=== PATIENT | female | born 1985 | race Caucasian/White ===

== ENCOUNTER → 2017-09-26 | Outpatient (CLI) | payer BC ==
[~2017-09-26] MED LIST: BCP; Cheratussin AC118 ML PO; MULVITMIND PO; Percocet 5-3251 EACH PO
[2017-09-26 16:47] LABS: Specimen Source VAGINAL CYST
[2017-09-27 09:22] LABS: Source VAGINAL CYST
== END ==
LOC: LAB 12:12
PROVIDERS: Registered Nurse Community Health
DX: Z11.3 Encounter for screening for infections with a predominantly sexual mode of transmission (principal)
CPT/HCPCS: 87491; 87591

== ENCOUNTER → 2018-12-03 | Outpatient (CLI) | payer BC | LOC: LAB SHORT 13:10 → LAB EV 13:10 | DX: S40.851A Superficial foreign body of right upper arm, initial encounter (principal) | CPT/HCPCS: 87070; 87075; 87205 ==

== ENCOUNTER → 2020-06-30 | Outpatient (CLI) | payer BC ==
[2020-07-02 15:22] LABS: CORONAVIRUS (COVID19) CSH-NRL Negative (Negative)
== END ==
LOC: LAB SHORT 18:41 → LAB EV 18:41
PROVIDERS: Physician Assistant Medical
DX: R05 Cough (principal); Z20.828 Contact with and (suspected) exposure to other viral communicable diseases
CPT/HCPCS: U0003

== ENCOUNTER → 2022-06-14 | Outpatient (CLI) | payer BC ==
[2022-06-15 15:09] LABS: HPV 16 Negative (Negative); HPV 18 Negative (Negative); HPV OTHER HR TYPES Negative (Negative)
== END | disposition home or self-care (01) ==
LOC: LAB SHORT 14:34 → LAB 14:34
PROVIDERS: Advanced Practice Midwife
DX: Z01.419 Encounter for gynecological examination (general) (routine) without abnormal findings (principal)
CPT/HCPCS: 87624; G0123

== ENCOUNTER → 2022-07-06 | Outpatient (CLI) | payer BC | LOC: LAB SHORT 08:37 → LAB 08:37 | DX: L08.9 Local infection of the skin and subcutaneous tissue, unspecified (principal) | CPT/HCPCS: 87070; 87205 ==

== ENCOUNTER → 2022-12-06 | Outpatient (CLI) | payer BC | END | disposition home or self-care (01) | LOC: LAB SHORT 14:24 → LAB 14:24 | DX: O09.893 Supervision of other high risk pregnancies, third trimester (principal) | CPT/HCPCS: 87081; 87150 ==

== ENCOUNTER 2022-12-13 19:06 | Inpatient (IN) | payer BC ==
[~2022-12-13] VITALS: Ht 157.5 cm; Wt 75.4 kg
[2022-12-13] VITALS (14 sets, daily range): BP systolic 106–175; BP diastolic 73–102
[2022-12-13] MEDS ORDERED: PRENATAL TABLE1 EAC2 PO (19:57)
[2022-12-13 20:04] LABS: Creatinine, Urine Random 48.8 mg/dL (27.00-270.00); Protein, Urine Random 18.8 mg/dL (0.0-11.9); Protein/Creat Ratio, Ur Random 0.4
[2022-12-13 20:32] LABS: BASOPHILS ABSOLUTE AUTO 0.07 K/mm3 (0.00-0.23); BASOPHILS PERCENT AUTO 0 % (0-2); EOSINOPHILS ABSOLUTE AUTO 0.03 K/mm3 (0.00-0.68); EOSINOPHILS PERCENT AUTO 0 % (0-6); Hematocrit 43.1 % (33.0-51.0); Hemoglobin 14.8 g/dL (11.5-16.0); IMMATURE GRAN ABSOLUTE AUTO 0.07 K/mm3 (0.00-0.10); IMMATURE GRAN PERCENT AUTO 0 % (0-1); LYMPHOCYTES ABSOLUTE AUTO 2.15 K/mm3 (0.84-5.20); LYMPHOCYTES PERCENT AUTO 14 % (21-46); MONOCYTES ABSOLUTE AUTO 0.71 K/mm3 (0.16-1.47); MONOCYTES PERCENT AUTO 5 % (4-13); Mean Corpuscular HGB 31.4 pg (26.0-34.0); Mean Corpuscular HGB Conc 34.3 g/dL (31.5-36.5); Mean Corpuscular Volume 91 fL (80-100); Mean Platelet Volume 12.6 fL (9.1-12.4); NEUTROPHILS PERCENT AUTO 81 % (41-73); Platelet Count 220 K/mm3 (150-400); RDW Coefficient Variation 13.2 % (11.7-14.2); RDW Standard Deviation 44.6 fL (35.1-46.3); Red Blood Cell Count 4.72 M/mm3 (3.80-5.20); White Blood Cell Count 15.83 K/mm3 (4.00-11.30)
[2022-12-13 21:04] LABS: Albumin, Blood 2.5 g/dL (3.4-5.0); Albumin/Globulin Ratio 0.6 (0.8-1.8); Bilirubin, Total 0.6 mg/dL (0.1-1.0); Bun/Creatinine Ratio 10.1 (12.0-20.0); Calcium, Blood 8.9 mg/dL (8.5-10.1); Creatinine, Blood 0.69 mg/dL (0.40-1.00); Globulin, Blood 4.3 g/dL (2.2-4.0); Potassium, Blood 3.6 mmol/L (3.5-5.5); Total Protein, Blood 6.8 g/dL (6.4-8.2)
[2022-12-14] VITALS (76 sets, daily range): BP systolic 102–179; BP diastolic 55–94
[2022-12-14 01:26] LABS: International Normalized Ratio 0.88; Prothrombin Time Results 9.3 Sec (9.7-11.5)
[2022-12-14 16:10] LABS: Albumin, Blood 2.6 g/dL (3.4-5.0); Albumin/Globulin Ratio 0.6 (0.8-1.8); Bilirubin, Total 0.6 mg/dL (0.1-1.0); Bun/Creatinine Ratio 9.8 (12.0-20.0); Calcium, Blood 8.1 mg/dL (8.5-10.1); Creatinine, Blood 0.82 mg/dL (0.40-1.00); Globulin, Blood 4.5 g/dL (2.2-4.0); Magnesium, Blood 8.8 mg/dL (1.6-2.4); Potassium, Blood 3.9 mmol/L (3.5-5.5); Total Protein, Blood 7.1 g/dL (6.4-8.2)
[2022-12-14 23:29] LABS: Hematocrit 39.6 % (33.0-51.0); Hemoglobin 13.5 g/dL (11.5-16.0); Mean Corpuscular HGB 31.5 pg (26.0-34.0); Mean Corpuscular HGB Conc 34.1 g/dL (31.5-36.5); Mean Corpuscular Volume 92 fL (80-100); Mean Platelet Volume 12.3 fL (9.1-12.4); Platelet Count 213 K/mm3 (150-400); RDW Coefficient Variation 13.8 % (11.7-14.2); RDW Standard Deviation 46.3 fL (35.1-46.3); Red Blood Cell Count 4.29 M/mm3 (3.80-5.20)
[2022-12-14 23:51] LABS: White Blood Cell Count 21.01 K/mm3 (4.00-11.30)
[2022-12-14 23:53] LABS: BAND PERCENT MAN 3 % (0-8); BASOPHILS PERCENT MAN 0 % (0-2); EOSINOPHILS PERCENT MAN 0 % (0-6); LYMPHOCYTES ABSOLUTE MAN 1.68 K/mm3 (0.84-5.20); LYMPHOCYTES PERCENT MAN 8 % (21-46); MONOCYTES ABSOLUTE MAN 1.26 K/mm3 (0.16-1.47); MONOCYTES PERCENT MAN 6 % (4-13); NEUTROPHILS ABSOLUTE MAN 18.06 K/mm3 (1.96-9.15); SEG NEUTROPHILS PERCENT MAN 83 % (41-73); TOTAL CELLS COUNTED 100
[2022-12-14 23:57] LABS: Albumin, Blood 2.3 g/dL (3.4-5.0); Albumin/Globulin Ratio 0.6 (0.8-1.8); Bilirubin, Total 0.8 mg/dL (0.1-1.0); Bun/Creatinine Ratio 10.5 (12.0-20.0); Calcium, Blood 7.8 mg/dL (8.5-10.1); Creatinine, Blood 1.05 mg/dL (0.40-1.00); Magnesium, Blood 6.5 mg/dL (1.6-2.4); Total Protein, Blood 6.3 g/dL (6.4-8.2)
[2022-12-15] VITALS (75 sets, daily range): BP systolic 102–183; BP diastolic 56–123
[2022-12-15 02:13] LABS: Albumin, Blood 2.2 g/dL (3.4-5.0); Albumin/Globulin Ratio 0.6 (0.8-1.8); Bilirubin, Total 0.8 mg/dL (0.1-1.0); Bun/Creatinine Ratio 10.1 (12.0-20.0); Calcium, Blood 7.5 mg/dL (8.5-10.1); Creatinine, Blood 1.19 mg/dL (0.40-1.00); Globulin, Blood 3.8 g/dL (2.2-4.0); Magnesium, Blood 5.9 mg/dL (1.6-2.4); Potassium, Blood 3.9 mmol/L (3.5-5.5)
--- NOTE | 2022-12-15 05:33 | NUR ---
12/15/22 0533 Lanny Fuentes PT ENTERED OR WITH ANTHONY CATHETER
--- NOTE | 2022-12-15 07:31 | NUR ---
MAGSO4 OFF PER DR THOMPSON AT BEDSIDE, FF
--- NOTE | 2022-12-15 07:45 | NUR ---
lr off, pitocin with lr started at 250cc/hr, turned lr off so not to fluid overload pt.
--- NOTE | 2022-12-15 07:46 | NUR ---
LR OFF, PITOCIN STARTED AT 250CC/HR, PT STILL FELLS LIKE SHE IS BLEEING
--- NOTE | 2022-12-15 08:00 | NUR ---
DR THOMPSON AWARE OF QBL TOTAL + OR EBL, AWARE OF URINE OUTPUT, LABS DRAWN NOW, URINE OUTPUT UNDEER 30CC/HR.
--- NOTE | 2022-12-15 08:14 | NUR ---
DR THOMPSON AT BEDSIDE, HAS BEEN AT BEDSIDE MULTIPLE TIMES DURING DAYSHIFT, HAS REMAINED IN HOUSE AND CONSULTED WITH DR BRONSON.
[2022-12-15 08:17] LABS: BASOPHILS ABSOLUTE AUTO 0.07 K/mm3 (0.00-0.23); BASOPHILS PERCENT AUTO 0 % (0-2); EOSINOPHILS ABSOLUTE AUTO 0.07 K/mm3 (0.00-0.68); EOSINOPHILS PERCENT AUTO 0 % (0-6); Hematocrit 27.9 % (33.0-51.0); Hemoglobin 9.6 g/dL (11.5-16.0); IMMATURE GRAN ABSOLUTE AUTO 0.25 K/mm3 (0.00-0.10); IMMATURE GRAN PERCENT AUTO 1 % (0-1); LYMPHOCYTES ABSOLUTE AUTO 1.61 K/mm3 (0.84-5.20); LYMPHOCYTES PERCENT AUTO 5 % (21-46); MONOCYTES ABSOLUTE AUTO 1.48 K/mm3 (0.16-1.47); MONOCYTES PERCENT AUTO 5 % (4-13); Mean Corpuscular HGB 32.1 pg (26.0-34.0); Mean Corpuscular HGB Conc 34.4 g/dL (31.5-36.5); Mean Corpuscular Volume 93 fL (80-100); Mean Platelet Volume 12.8 fL (9.1-12.4); NEUTROPHILS ABSOLUTE AUTO 28.23 K/mm3 (1.96-9.15); NEUTROPHILS PERCENT AUTO 89 % (41-73); Platelet Count 261 K/mm3 (150-400); RDW Standard Deviation 46.9 fL (35.1-46.3); Red Blood Cell Count 2.99 M/mm3 (3.80-5.20); White Blood Cell Count 31.71 K/mm3 (4.00-11.30)
--- NOTE | 2022-12-15 08:27 | NUR ---
PT VERY CRAMPY AND PAINFUL, BABY CURRENTLY FEEDING, VERY GOOD LATCH AND SUCK,
[2022-12-15 08:31] LABS: International Normalized Ratio 0.92; Prothrombin Time Results 9.7 Sec (9.7-11.5)
[2022-12-15 08:34] LABS: Albumin, Blood 1.6 g/dL (3.4-5.0); Albumin/Globulin Ratio 0.5 (0.8-1.8); Bilirubin, Total 0.7 mg/dL (0.1-1.0); Bun/Creatinine Ratio 11.4 (12.0-20.0); Calcium, Blood 7.1 mg/dL (8.5-10.1); Creatinine, Blood 1.23 mg/dL (0.40-1.00); Globulin, Blood 3.1 g/dL (2.2-4.0); Magnesium, Blood 4.9 mg/dL (1.6-2.4); Potassium, Blood 4.1 mmol/L (3.5-5.5); Total Protein, Blood 4.7 g/dL (6.4-8.2)
--- NOTE | 2022-12-15 08:37 | NUR ---
DR BRONSON ASSUMED CARE, REQUEST ANTHONY BE FLUSHED,
--- NOTE | 2022-12-15 08:46 | NUR ---
DR BRONSON AT BEDSIDE, REVIEWED I&O, TALKED TO PT ABOUT PLAN OF CARE AND CONSULTS
--- NOTE | 2022-12-15 09:33 | NUR ---
URINE OUTPUT IN 50 MINUTES 32CC OF DARK JEFFRY COLORED URINE THAT IS CLEAR. PT IS SNORING AFTER THE 1 MG OF DILAUDID, FENTANYL YAM CURER IN HOOKED UP, EXPLAINED TO PT BEFORE GAVE DILAUDID THAT THE FENTNYL YAM CURER WOULD ONLY GIVE HER PAIN MEDS WHEN SHE PRESSED THE BUTTON, BUTTON AT BEDSIDE, TOOK BABY TO DESK SO MOM COULD SLEEP, VS STABLE, VAG BLEEDING HAS SLOWED DOWN TO SMALL TO SCAN, FF REMAINS FIRM AT [facility]. CONTININIOUS BIOX REMAINS ON.
--- NOTE | 2022-12-15 09:40 | NUR ---
from [id number] frequent fundal massage were done and all pads were weighted, no all fundal massages were documented, pt fundus as been firm at [facility] every massage, pt ls have remained clear during this time, pt compliants since i assumed care are pain and she has to stand up to void, pt is aware wont be standing for a while. currently still snoring, baby remains at the desk
--- NOTE | 2022-12-15 09:46 | NUR ---
first high blood pressure, pt is awake, she reports she was aware we took her baby to the desk and is ok withit, showed her the manager behavioral button and instructed how to use it and that is was different medication that what we have been giving her.
--- NOTE | 2022-12-15 10:10 | NUR ---
paged dr almodovar at 0948 and then again at 1000 due to 2 blood pressures being greater than [address] almodovar reports to give 20mg iv labetalol push, when back in room at 1008, the 1000 bp was 148 systolic. holding labetalol next bp due in 5 minutes and if greater than 160 systolic or 110 diastolic will give labetalol. pt is sleeping, new orders from dr almodovar to run ns at 50cc/hr with fentanyl heavy rail train operator
--- NOTE | 2022-12-15 10:15 | NUR ---
LABETALOL GIVEN FOR SYSTOLIC OF 162. DR LORENZO WALKED IN TO THE ROOM AT SAME TIME
--- NOTE | 2022-12-15 10:43 | NUR ---
NS WITH MOBILE APPLICATION ARCHITECT TO 100CC/HR PER DR DUEÑAS
--- NOTE | 2022-12-15 10:43 | NUR ---
PT SNORING/SLEEPING, BABY CONTINUES AT DESK
[2022-12-15 11:47] LABS: Source, Urine Foley catheter
--- NOTE | 2022-12-15 11:55 | NUR ---
PT LS CLEAR BILATERALLY, PT REALLY WANTS ANTHONY OUT AND TO GET OUT OF BED, PT IS AWARE THAT ANTHONY CANT COME OUT DUE TO URINE OUTPUT, BUT IF HER URINE OUTPUT IMPROVES MAYBE AND HER LABS ARE GOOD, MAYBE TONIGHT WE COULD STAND HER AT BEDSIDE, CONCERN IS HER BLOOD LOSS AND STANDING WITH HER BLOOD PRESSURE ISSUES.
--- NOTE | 2022-12-15 12:00 | NUR ---
dr almodovar called for update.
[2022-12-15 12:07] LABS: Appearance, Urine Clear (Clear); Bilirubin, Urine Neg (Neg); Blood, Urine 5+ (Neg); Color, Urine Amber (P-Yellow); Glucose Qualitative, Urine Neg (Neg); Ketones, Urine Neg (Neg); Leukocyte Esterase, Urine 2+ (Neg); Nitrite, Urine Neg (Neg); Protein, Urine 2+ (Neg); Specific Gravity, Urine 1.015 (1.003-1.022); Urobilinogen, Urine NORM (Normal)
[2022-12-15 12:24] LABS: BASOPHILS ABSOLUTE AUTO 0.07 K/mm3 (0.00-0.23); BASOPHILS PERCENT AUTO 0 % (0-2); EOSINOPHILS PERCENT AUTO 0 % (0-6); Hematocrit 25.4 % (33.0-51.0); Hemoglobin 8.6 g/dL (11.5-16.0); IMMATURE GRAN ABSOLUTE AUTO 0.28 K/mm3 (0.00-0.10); IMMATURE GRAN PERCENT AUTO 1 % (0-1); LYMPHOCYTES ABSOLUTE AUTO 1.48 K/mm3 (0.84-5.20); LYMPHOCYTES PERCENT AUTO 4 % (21-46); MONOCYTES ABSOLUTE AUTO 1.62 K/mm3 (0.16-1.47); MONOCYTES PERCENT AUTO 4 % (4-13); Mean Corpuscular HGB 32.3 pg (26.0-34.0); Mean Corpuscular HGB Conc 33.9 g/dL (31.5-36.5); Mean Corpuscular Volume 96 fL (80-100); Mean Platelet Volume 12.6 fL (9.1-12.4); NEUTROPHILS ABSOLUTE AUTO 34.47 K/mm3 (1.96-9.15); NEUTROPHILS PERCENT AUTO 91 % (41-73); Platelet Count 244 K/mm3 (150-400); RDW Coefficient Variation 13.8 % (11.7-14.2); Red Blood Cell Count 2.66 M/mm3 (3.80-5.20); White Blood Cell Count 37.92 K/mm3 (4.00-11.30)
[2022-12-15 12:40] LABS: Microalb/Creat Ratio UR, Rand 61.053 mg/g (0.000-30.000); Microalbumin, Random Urine 69.6 mg/L (0.000-20.000)
[2022-12-15 12:49] LABS: Albumin, Blood 1.6 g/dL (3.4-5.0); Albumin/Globulin Ratio 0.5 (0.8-1.8); Bilirubin, Total 0.7 mg/dL (0.1-1.0); Bun/Creatinine Ratio 11.9 (12.0-20.0); Creatinine, Blood 1.18 mg/dL (0.40-1.00); Potassium, Blood 4.4 mmol/L (3.5-5.5); Total Protein, Blood 4.6 g/dL (6.4-8.2)
[2022-12-15 12:51] LABS: Bacteria Rare /hpf; Mucus Light (0-Heavy); Squamous Epithelial Cells Few /hpf (Few)
[2022-12-15 13:52] LABS: International Normalized Ratio 0.93; Prothrombin Time Results 9.8 Sec (9.7-11.5)
--- NOTE | 2022-12-15 15:05 | NUR ---
dr almodovar called for update, new orders for 1600 cbc and cmp, she is reaching out to dr tucker about pt wbc's
[2022-12-15 16:06] LABS: BASOPHILS ABSOLUTE AUTO 0.05 K/mm3 (0.00-0.23); BASOPHILS PERCENT AUTO 0 % (0-2); EOSINOPHILS PERCENT AUTO 0 % (0-6); Hematocrit 22.3 % (33.0-51.0); Hemoglobin 7.6 g/dL (11.5-16.0); IMMATURE GRAN ABSOLUTE AUTO 0.31 K/mm3 (0.00-0.10); IMMATURE GRAN PERCENT AUTO 1 % (0-1); LYMPHOCYTES ABSOLUTE AUTO 1.84 K/mm3 (0.84-5.20); LYMPHOCYTES PERCENT AUTO 5 % (21-46); MONOCYTES ABSOLUTE AUTO 1.61 K/mm3 (0.16-1.47); MONOCYTES PERCENT AUTO 4 % (4-13); Mean Corpuscular HGB 32.1 pg (26.0-34.0); Mean Corpuscular HGB Conc 34.1 g/dL (31.5-36.5); Mean Corpuscular Volume 94 fL (80-100); Mean Platelet Volume 12.4 fL (9.1-12.4); NEUTROPHILS ABSOLUTE AUTO 36.54 K/mm3 (1.96-9.15); NEUTROPHILS PERCENT AUTO 91 % (41-73); Platelet Count 251 K/mm3 (150-400); RDW Coefficient Variation 13.8 % (11.7-14.2); RDW Standard Deviation 46.5 fL (35.1-46.3); Red Blood Cell Count 2.37 M/mm3 (3.80-5.20); White Blood Cell Count 40.35 K/mm3 (4.00-11.30)
[2022-12-15 16:45] LABS: Albumin, Blood 1.6 g/dL (3.4-5.0); Albumin/Globulin Ratio 0.6 (0.8-1.8); Bilirubin, Total 0.6 mg/dL (0.1-1.0); Bun/Creatinine Ratio 11.7 (12.0-20.0); Creatinine, Blood 1.28 mg/dL (0.40-1.00); Globulin, Blood 2.9 g/dL (2.2-4.0); Potassium, Blood 4.4 mmol/L (3.5-5.5); Total Protein, Blood 4.5 g/dL (6.4-8.2)
--- NOTE | 2022-12-15 17:39 | NUR ---
dr almodovar called for update, to give 1 unit of blood, will call back with further orders
--- NOTE | 2022-12-15 17:42 | NUR ---
pt educated on getting one unit of blood, pt is agree able to getting the blood
--- NOTE | 2022-12-15 18:25 | NUR ---
DR BRONSON AT BEDSIDE ASSESSING PT NEW ORDERS TO DO LABS CBC/CMP Q 6 HOURS INSTEAD OF Q 4 HOURS
--- NOTE | 2022-12-15 18:40 | NUR ---
PT DENIES ANY DIFFICULTY BREATHING OR FEELING DIFFERENT FROM TRANSFUSION AT THIS TIME
--- NOTE | 2022-12-15 19:15 | NUR ---
RN CALL TO TO UPDATE ON 2 SEVERE RANGE BPs 15 MIN APART. NO ORDERS RECEIVED AT THIS TIME. RN TO CONTINUE MONITORING BP.
--- NOTE | 2022-12-15 20:55 | NUR ---
CALL TO TO CLARIFY BLOOD TRANSFUSION ORDERS. RN TO TRANSFUSE 1 TOTAL UNIT OF PRBC. UPDATED ON PT'S CURRENT VS/BPs. RN TO CALL BACK IF BPs CONSISTENTLY IN SEVERE RANGE, NO FURTHER ORDERS AT THIS TIME.
--- NOTE | 2022-12-15 21:27 | NUR ---
UPDATE TO OF 2 SEVERE RANGE BPs. ORDERS RECEIVED FOR A 1 TIME DOSE OF 200MG LABETALOL PO NOW.
[2022-12-15 23:32] LABS: Hematocrit 27.2 % (33.0-51.0); Hemoglobin 9.4 g/dL (11.5-16.0); Mean Corpuscular HGB 31.1 pg (26.0-34.0); Mean Corpuscular HGB Conc 34.6 g/dL (31.5-36.5); Mean Corpuscular Volume 90 fL (80-100); Mean Platelet Volume 12.6 fL (9.1-12.4); Platelet Count 235 K/mm3 (150-400); RDW Coefficient Variation 15.2 % (11.7-14.2); RDW Standard Deviation 49.8 fL (35.1-46.3); Red Blood Cell Count 3.02 M/mm3 (3.80-5.20); White Blood Cell Count 35.06 K/mm3 (4.00-11.30)
[2022-12-15 23:51] LABS: Albumin, Blood 1.7 g/dL (3.4-5.0); Albumin/Globulin Ratio 0.5 (0.8-1.8); Bilirubin, Total 0.9 mg/dL (0.1-1.0); Bun/Creatinine Ratio 13.4 (12.0-20.0); Calcium, Blood 7.4 mg/dL (8.5-10.1); Creatinine, Blood 1.12 mg/dL (0.40-1.00); Globulin, Blood 3.3 g/dL (2.2-4.0); Potassium, Blood 4.4 mmol/L (3.5-5.5)
[2022-12-16] VITALS (11 sets, daily range): BP systolic 103–155; BP diastolic 53–80
[2022-12-16 00:02] LABS: BAND PERCENT MAN 2 % (0-8); BASOPHILS PERCENT MAN 0 % (0-2); EOSINOPHILS PERCENT MAN 0 % (0-6); LYMPHOCYTES PERCENT MAN 6 % (21-46); MONOCYTES PERCENT MAN 6 % (4-13); NEUTROPHILS ABSOLUTE MAN 30.85 K/mm3 (1.96-9.15); SEG NEUTROPHILS PERCENT MAN 86 % (41-73); TOTAL CELLS COUNTED 100
[2022-12-16 04:29] LABS: BASOPHILS ABSOLUTE AUTO 0.04 K/mm3 (0.00-0.23); BASOPHILS PERCENT AUTO 0 % (0-2); EOSINOPHILS PERCENT AUTO 0 % (0-6); Hematocrit 23.2 % (33.0-51.0); Hemoglobin 8.1 g/dL (11.5-16.0); IMMATURE GRAN ABSOLUTE AUTO 0.13 K/mm3 (0.00-0.10); IMMATURE GRAN PERCENT AUTO 1 % (0-1); LYMPHOCYTES ABSOLUTE AUTO 1.92 K/mm3 (0.84-5.20); LYMPHOCYTES PERCENT AUTO 8 % (21-46); MONOCYTES ABSOLUTE AUTO 1.26 K/mm3 (0.16-1.47); MONOCYTES PERCENT AUTO 5 % (4-13); Mean Corpuscular HGB 31.3 pg (26.0-34.0); Mean Corpuscular HGB Conc 34.9 g/dL (31.5-36.5); Mean Corpuscular Volume 90 fL (80-100); Mean Platelet Volume 12.4 fL (9.1-12.4); NEUTROPHILS ABSOLUTE AUTO 20.99 K/mm3 (1.96-9.15); NEUTROPHILS PERCENT AUTO 86 % (41-73); Platelet Count 204 K/mm3 (150-400); RDW Coefficient Variation 15.4 % (11.7-14.2); RDW Standard Deviation 49.5 fL (35.1-46.3); Red Blood Cell Count 2.59 M/mm3 (3.80-5.20); White Blood Cell Count 24.34 K/mm3 (4.00-11.30)
[2022-12-16 04:47] LABS: Albumin, Blood 1.6 g/dL (3.4-5.0); Albumin/Globulin Ratio 0.5 (0.8-1.8); Bilirubin, Total 0.5 mg/dL (0.1-1.0); Bun/Creatinine Ratio 13.6 (12.0-20.0); Calcium, Blood 7.4 mg/dL (8.5-10.1); Creatinine, Blood 1.03 mg/dL (0.40-1.00); Potassium, Blood 4.3 mmol/L (3.5-5.5); Total Protein, Blood 4.6 g/dL (6.4-8.2)
[2022-12-16 13:30] LABS: BASOPHILS ABSOLUTE AUTO 0.04 K/mm3 (0.00-0.23); BASOPHILS PERCENT AUTO 0 % (0-2); EOSINOPHILS PERCENT AUTO 0 % (0-6); Hematocrit 24.3 % (33.0-51.0); Hemoglobin 8.4 g/dL (11.5-16.0); IMMATURE GRAN ABSOLUTE AUTO 0.13 K/mm3 (0.00-0.10); IMMATURE GRAN PERCENT AUTO 1 % (0-1); LYMPHOCYTES ABSOLUTE AUTO 1.42 K/mm3 (0.84-5.20); LYMPHOCYTES PERCENT AUTO 6 % (21-46); MONOCYTES ABSOLUTE AUTO 1.49 K/mm3 (0.16-1.47); MONOCYTES PERCENT AUTO 6 % (4-13); Mean Corpuscular HGB 31.2 pg (26.0-34.0); Mean Corpuscular HGB Conc 34.6 g/dL (31.5-36.5); Mean Corpuscular Volume 90 fL (80-100); Mean Platelet Volume 11.9 fL (9.1-12.4); NEUTROPHILS ABSOLUTE AUTO 20.39 K/mm3 (1.96-9.15); NEUTROPHILS PERCENT AUTO 87 % (41-73); Platelet Count 228 K/mm3 (150-400); RDW Coefficient Variation 15.9 % (11.7-14.2); RDW Standard Deviation 52.3 fL (35.1-46.3); Red Blood Cell Count 2.69 M/mm3 (3.80-5.20); White Blood Cell Count 23.47 K/mm3 (4.00-11.30)
--- NOTE | 2022-12-16 13:33 | NUR ---
UP AMB IN ROOM, UP TO BATHROOM AND WALKING IN ROOM MULTIPLE TIMES, BABY TO DESK, MOM GOING TO TRY TO REST AFTER GETTING PAIN MEDS, FOB GETTING LUNCH, TO BE BACK SOON.
--- NOTE | 2022-12-16 13:45 | NUR ---
TUCKED IN TO BED FOR A NAP, BABY AT THE DESK
[2022-12-16 13:54] LABS: Albumin, Blood 1.7 g/dL (3.4-5.0); Albumin/Globulin Ratio 0.5 (0.8-1.8); Bilirubin, Total 0.2 mg/dL (0.1-1.0); Bun/Creatinine Ratio 12.5 (12.0-20.0); Calcium, Blood 7.9 mg/dL (8.5-10.1); Creatinine, Blood 0.88 mg/dL (0.40-1.00); Globulin, Blood 3.6 g/dL (2.2-4.0); Potassium, Blood 4.2 mmol/L (3.5-5.5); Total Protein, Blood 5.3 g/dL (6.4-8.2)
--- NOTE | 2022-12-16 16:45 | NUR ---
T FROM Carolina ROCA RN
--- NOTE | 2022-12-16 18:53 | NUR ---
REPT TO PM SHIFT
[2022-12-17 00:15] VITALS: BP 149/75
[2022-12-17 06:43] LABS: BASOPHILS ABSOLUTE AUTO 0.06 K/mm3 (0.00-0.23); BASOPHILS PERCENT AUTO 0 % (0-2); EOSINOPHILS ABSOLUTE AUTO 0.05 K/mm3 (0.00-0.68); EOSINOPHILS PERCENT AUTO 0 % (0-6); Hematocrit 24.4 % (33.0-51.0); Hemoglobin 8.2 g/dL (11.5-16.0); IMMATURE GRAN ABSOLUTE AUTO 0.28 K/mm3 (0.00-0.10); IMMATURE GRAN PERCENT AUTO 1 % (0-1); LYMPHOCYTES ABSOLUTE AUTO 2.46 K/mm3 (0.84-5.20); LYMPHOCYTES PERCENT AUTO 10 % (21-46); MONOCYTES ABSOLUTE AUTO 1.59 K/mm3 (0.16-1.47); MONOCYTES PERCENT AUTO 6 % (4-13); Mean Corpuscular HGB 31.1 pg (26.0-34.0); Mean Corpuscular HGB Conc 33.6 g/dL (31.5-36.5); Mean Corpuscular Volume 92 fL (80-100); Mean Platelet Volume 11.8 fL (9.1-12.4); NEUTROPHILS ABSOLUTE AUTO 20.22 K/mm3 (1.96-9.15); NEUTROPHILS PERCENT AUTO 82 % (41-73); Platelet Count 261 K/mm3 (150-400); RDW Coefficient Variation 15.6 % (11.7-14.2); RDW Standard Deviation 52.2 fL (35.1-46.3); Red Blood Cell Count 2.64 M/mm3 (3.80-5.20); White Blood Cell Count 24.66 K/mm3 (4.00-11.30)
[2022-12-17 07:06] LABS: Albumin, Blood 1.9 g/dL (3.4-5.0); Albumin/Globulin Ratio 0.5 (0.8-1.8); Bilirubin, Total 0.3 mg/dL (0.1-1.0); Bun/Creatinine Ratio 11.1 (12.0-20.0); Calcium, Blood 8.6 mg/dL (8.5-10.1); Creatinine, Blood 0.72 mg/dL (0.40-1.00); Globulin, Blood 3.9 g/dL (2.2-4.0); Total Protein, Blood 5.8 g/dL (6.4-8.2)
[2022-12-17 07:41] VITALS: BP 145/79
[2022-12-17] MEDS ORDERED: OXAYDO5 M1 PO (14:16)
[2022-12-17] MEDS ORDERED: ACET500 PO (14:17)
[2022-12-17 15:01] VITALS: BP 137/86
--- NOTE | 2022-12-17 15:15 | NUR ---
dc instructions at bedside, ppfu appt made, pat papers at bedside, need to be signed, pt would like to leave at 1800ish, she is aware she can leave at anytime. SL x2 dcd cath intact.
--- NOTE | 2022-12-17 17:40 | NUR ---
dc instrunctions gone over with pt, all questions answered, pt has ppfu on tuesday at 1300 and a [facility] appt on tuesday at 1100. s&s of pih/preeclampsia went over with pt, encouraged to call the weekend provider wtih any questions at all. pt doesnt have a bp cuff at home so not able to take her blood pressures. pat papers signed, pt hasnt picked up her meds yet, reports will send SO to do at 1800, pt mom on her way here from [place] to pick pt up and take her home.
--- NOTE | 2022-12-17 18:43 | NUR ---
pt mom is here, they are not ready to leave yet, still picking up room, pt doesnt have cloths on yet. grandma is holding baby.
[2022-12-17 18:56] VITALS: BP 164/80
--- NOTE | 2022-12-17 18:56 | NUR ---
at 1856 standing blood pressure 164/80, mom has been packing the room up, she was ready to walk out the door and bp was high, will repeart in 15 minutes, report was given to Latonya MENDOSA.
[2022-12-17 19:14] VITALS: BP 163/80
[2022-12-17 19:40] VITALS: BP 134/84
== END 2022-12-17 19:45 | disposition home or self-care (01) | DRG 787 ==
LOC: OBS 19:06 → BC 19:07 → OBS 19:23 → BC 19:23
PROVIDERS: Advanced Practice Midwife; Internal Medicine; Obstetrics & Gynecology; ADMIT Advanced Practice Midwife
PROC: 30233N1 Transfusion of Nonautologous Red Blood Cells into Peripheral Vein, Percutaneous Approach (ICD-10-PCS; 2022-12-15)
PROC: 10D00Z1 Extraction of Products of Conception, Low, Open Approach (ICD-10-PCS; principal; 2022-12-15 03:00)
DX: O24.420 Gestational diabetes mellitus in childbirth, diet controlled (principal); D62 Acute posthemorrhagic anemia; N17.9 Acute kidney failure, unspecified; E87.1 Hypo-osmolality and hyponatremia; O26.833 Pregnancy related renal disease, third trimester; O72.1 Other immediate postpartum hemorrhage; O14.14 Severe pre-eclampsia complicating childbirth; Z3A.37 37 weeks gestation of pregnancy; O99.344 Other mental disorders complicating childbirth; Z67.10 Type A blood, Rh positive; O90.81 Anemia of the puerperium; D72.829 Elevated white blood cell count, unspecified; O99.285 Endocrine, nutritional and metabolic diseases complicating the puerperium; F17.210 Nicotine dependence, cigarettes, uncomplicated; Z37.0 Single live birth; Z98.890 Other specified postprocedural states; Z98.891 History of uterine scar from previous surgery
CPT/HCPCS: 36415; 36430; 51702; 59200; 80053; 81001; 82043; 82570; 82947; 83735; 83935; 84156; 84300; 85025; 85384; 85610; 85730; 86850; 86900; 86901; 86923; 87086; A9270; J0456; J0690; J0696; J1170; J1720; J2001; J2250; J2310; J2370; J2405; J2590; J2765; J2916; J3010; J3475; J7030; J7040; J7050; J7120; P9016

== ENCOUNTER 2023-03-08 11:18 | Emergency (ER) | payer BC, OTHER ==
[~2023-03-08] VITALS: Ht 157.5 cm; Wt 61.7 kg
[~2023-03-08 11:18] MED LIST changes: +ACET500 PO; +OXAYDO5 M1 PO; +PRENATAL TABLE1 EAC2 PO
[2023-03-08 11:26] VITALS: BP 120/80
== END 2023-03-08 12:56 | disposition home or self-care (01) ==
LOC: ER 11:18
DX: M65.4 Radial styloid tenosynovitis [de Quervain] (principal); M77.8 Other enthesopathies, not elsewhere classified; Z91.030 Bee allergy status; Z79.899 Other long term (current) drug therapy; F17.200 Nicotine dependence, unspecified, uncomplicated
CPT/HCPCS: 73110; 99283-25